=== PATIENT | male | born 1980 | race Caucasian/White ===

== ENCOUNTER 2020-07-21 11:14 | Emergency (ER) | payer OTHER ==
[2020-07-21 11:59] LABS: BASOPHILS % (AUTO) 0.9 % (0.0-5.0); EOSINOPHILS % (AUTO) 5.4 % (0.0-8.0); HEMATOCRIT 41.6 % (42-54); LYMPHOCYTES % (AUTO) 34.1 % (21.0-51.0); MEAN CORPUSCULAR HEMOGLOBIN 31.4 pg (27.0-33.0); MEAN CORPUSCULAR HGB CONC 33.9 g/dL (32.0-36.0); MEAN CORPUSCULAR VOLUME 92.7 fL (79-99); MONOCYTES % (AUTO) 10.5 % (3.0-13.0); NEUTROPHILS % (AUTO) 48.8 % (40.0-77.0); PLATELET COUNT (AUTO) 221 K/uL (130-400); RED BLOOD CELL COUNT(AUTO) 4.49 MIL/uL (4.50-6.20); RED CELL DISTRIBUTION WIDTH 12.4 % (11.0-15.5); WHITE BLOOD COUNT (AUTO) 7.5 K/uL (4.8-10.8)
[2020-07-21] MEDS ORDERED: SODIUM CHLORIDE 0.9% 1000ML 1,000 ML IV ONE (11:59)
[2020-07-21] MEDS ORDERED: KETOROLAC TROMETHAMINE 30MG/ML ONE (12:03)
[2020-07-21] MEDS ORDERED: ONDANSETRON HCL 4 MG/2 ML VIAL ONE (12:06)
[2020-07-21 12:14] LABS: CREATININE 1.2 mg/dL (0.5-1.5); POTASSIUM 3.7 mmol/L (3.5-5.1)
[2020-07-21 12:18] LABS: ALBUMIN 3.9 g/dL (3.5-5.0); BILIRUBIN,TOTAL 0.3 mg/dL (0.2-1.0); TOTAL PROTEIN, SERUM 7.3 g/dL (6.0-8.3)
== END 2020-07-21 14:39 | disposition home or self-care (01) ==
LOC: EDH 11:14
DX: K63.89 Other specified diseases of intestine (principal); Z72.0 Tobacco use
CPT/HCPCS: 36415; 74176; 76705; 80053; 83690; 85025; 96361; 96374; 96375; 99285; J1885; J2405; J7030